=== PATIENT | male | born 1965 | race Caucasian/White ===

== ENCOUNTER 2017-09-14 06:21 | Day surgery (SDC) | payer MEDICAID ==
[2017-09-14] MEDS ORDERED: Propofol 200 MG/20 ML SDV IV ONE (06:48)
[2017-09-14] MEDS ORDERED: Midazolam 1 MG/ML 2 ML SDV IV ONE (06:48)
[2017-09-14] MEDS ORDERED: fentaNYL 100 MCG/2 ML SDV IV ONE (06:48)
[2017-09-14] MEDS ORDERED: Lactated Ringers 1,000 ML IV SCH (07:00)
--- NOTE | 2017-09-14 10:20 | OR ---
DATE OF PROCEDURE: 09/14/2017 PREOPERATIVE DIAGNOSIS: Colon cancer screening. POSTOPERATIVE DIAGNOSIS: Small colon polyp, 50 cm from the anal verge. PROCEDURE: Colonoscopy to the cecum with biopsy resection of small colon polyp , 50 cm from the anal verge. SURGEON: Willie Cramer MD. ANESTHESIA: IV anesthesia with monitored anesthesia care. INDICATION: This 52-year-old male is referred for a colonoscopy for colon cancer screening. He has never had a colonoscopic exam. I counseled him for the procedure including risks and alternatives, and he gave his informed consent to proceed. DESCRIPTION OF PROCEDURE: The patient was placed in the left lateral decubitus position. IV anesthesia was administered by the Anesthesia Service. Time-out was held. A rectal exam was performed, which was unremarkable. The flexible video Olympus colonoscope was introduced through his anus, up his rectum, and out of his colon all the way to the cecum. Once the cecum was reached, the scope was slowly withdrawn, examining the mucosa throughout. No mucosal abnormalities were noted until we reached about 50 cm from the anal verge. Here, we saw a small polyp, which was removed with a few bites of the biopsy forceps. The scope was withdrawn further with no other lesions noted. The scope was retroflexed in the rectum with the distal rectum appearing unremarkable. The scope was straightened and removed. He tolerated the procedure well. Willie Cramer MD /[id number]
== END 2017-09-14 09:00 | disposition home or self-care (01) ==
LOC: JP.SDS 06:21
PROVIDERS: ATTEND Surgery
DX: Z12.11 Encounter for screening for malignant neoplasm of colon (principal); D12.6 Benign neoplasm of colon, unspecified; I10 Essential (primary) hypertension; E78.00 Pure hypercholesterolemia, unspecified; G47.33 Obstructive sleep apnea (adult) (pediatric); F17.210 Nicotine dependence, cigarettes, uncomplicated
CPT/HCPCS: 45380; 88305; J2250; J2704; J3010; J7120

== ENCOUNTER 2023-11-22 21:36 | Inpatient (IN) | payer MEDICAID ==
[2023-11-22 22:20] LABS: HEMATOCRIT 38.4 % (38.4-49.7); HEMOGLOBIN 14.2 g/dL (12.9-16.9); MEAN CORPUSCULAR HEMOGLOBIN 36.7 pg (31.6-35.5); MEAN CORPUSCULAR VOLUME 99.2 fL (81.4-99.0); RED BLOOD CELL COUNT 3.87 M/uL (4.14-5.76); WHITE BLOOD CELL COUNT,WBC 11.5 K/uL (3.2-11.0)
[2023-11-22 22:39] LABS: A/G RATIO 0.5 (1.2-2.2); ALANINE AMINOTRANSFERASE,ALT 53 U/L (12-78); ALBUMIN 2.4 g/dL (3.4-5.0); ALKALINE PHOSPHATASE 118 U/L (46-116); ASPARTATE AMNIOTRANSFERASE,AST 134 U/L (15-37); BILIRUBIN TOTAL 1.2 mg/dL (0.2-1.0); BLOOD UREA NITROGEN,BUN 7 mg/dL (7-18); CALCIUM 7.5 mg/dL (8.5-10.1); CARBON DIOXIDE,CO2 31 mmol/L (21-32); CHLORIDE,CL 85 mmol/L (100-108); CREATINE KINASE,CK 54 U/L (39-308); CREATININE 1.2 mg/dL (0.8-1.3); EST CRCL DRUG DOSING (CG) 63.33 mL/min; ESTIMATED GFR 69 mL/min (>60); GLUCOSE RANDOM 151 mg/dL (74-106); PROTEIN TOTAL,TP 6.9 g/dL (6.4-8.2); SODIUM,NA 126 mmol/L (140-148); TROPONIN I HIGH SENSITIVITY 12.4 pg/mL (<=60.3)
[2023-11-22 22:43] LABS: ANION GAP 12.1 mmol/L (5.0-14.0); POTASSIUM,K 2.1 mmol/L (3.6-5.2)
[2023-11-22] MEDS ORDERED: Potassium Chloride 10 MEQ in Premix Bag 1 BAG IV ONE (22:48)
[2023-11-23] MEDS ORDERED: Sodium Chloride 0.9% 100 ML IV STA (00:18)
[2023-11-23] MEDS ORDERED: Iopamidol 755 Mg/ML 100 ML Bottle IV STA (00:18)
[2023-11-23] MEDS ORDERED: Potassium Chloride 10 MEQ in Premix Bag 1 BAG IV STA (00:41)
[2023-11-23 00:44] LABS: CORONAVIRUS COVID-19 NAA NEGATIVE (NEGATIVE); INFLUENZA A NAA NEGATIVE (NEGATIVE); INFLUENZA B NAA NEGATIVE (NEGATIVE); RESPIRATORY SYNCYTIAL VIR NAA NEGATIVE (NEGATIVE)
[2023-11-23 01:49] LABS: APPEARANCE,URINE CLEAR (CLEAR); BILIRUBIN,URINE SMALL (NEGATIVE); COLOR,URINE YELLOW (YELLOW); GLUCOSE,URINE NORMAL (NEGATIVE); LEUKOCYTE ESTERASE,URINE NEGATIVE (NEGATIVE); NITRITE,URINE NEGATIVE (NEGATIVE); OCCULT BLOOD,URINE TRACE (NEGATIVE); PROTEIN,URINE 30 mg/dL (NEGATIVE); UROBILINOGEN,URINE 1 EU/dL (0.2-1.0)
[2023-11-23 01:50] LABS: AMORPHOUS SEDIMENT,URINE MODERATE; BACTERIA,URINE FEW; EPITHELIAL CELLS,URINE FEW; KETONES,URINE TRACE mg/dL (NEGATIVE); MUCUS,URINE NOT SEEN; RBC,URINE 0-5 (0-5); WBC,URINE 0-5 (0-5)
[2023-11-23 01:54] LABS: AMPHETAMINES SCREEN, URINE NEGATIVE (NEGATIVE); BARBITURATE SCREEN,URINE NEGATIVE (NEGATIVE); BENZODIAZEPINES SCREEN,URINE NEGATIVE (NEGATIVE); METHADONE SCREEN, URINE NEGATIVE (NEGATIVE); METHAMPHETAMINES SCREEN, URINE NEGATIVE (NEGATIVE); OXYCODONE SCREEN,URINE NEGATIVE (NEGATIVE); PROPOXYPHENE SCREEN,URINE NEGATIVE (NEGATIVE); THC SCREEN,URINE 50 NG/ML NEGATIVE (NEGATIVE)
[2023-11-23] MEDS: Sodium Chloride 0.9% 1,000 ML IV SCH ×3 (01:58→20:13)
[2023-11-23] MEDS ORDERED: Potassium Chloride 20 MEQ Tab.ER PO ONE ×5 (02:38→22:00)
[2023-11-23] MEDS ORDERED: Magnesium Sulfate/Water 2 GM in Premix Bag 1 BAG IV SCH (02:45)
[2023-11-23] MEDS: Nicotine 21 MG/24 Hr Patch TRDERM SCH ×2 (03:13→08:41)
[2023-11-23] MEDS: Potassium Chloride 10 MEQ in Premix Bag 1 BAG IV SCH ×8 (03:13→12:23)
[2023-11-23] MEDS: Acetaminophen 325 MG Tab PO PRN ×3 (03:15→21:44)
[2023-11-23 04:57] LABS: HEMATOCRIT 34.3 % (38.4-49.7); HEMOGLOBIN 12.6 g/dL (12.9-16.9); MEAN CORPUSCULAR HEMOGLOBIN 36.4 pg (31.6-35.5); MEAN CORPUSCULAR HGB CONC 36.7 g/dL (31.6-35.5); MEAN CORPUSCULAR VOLUME 99.1 fL (81.4-99.0); RED BLOOD CELL COUNT 3.46 M/uL (4.14-5.76); WHITE BLOOD CELL COUNT,WBC 10.8 K/uL (3.2-11.0)
[2023-11-23] MEDS: Enoxaparin 40 MG/0.4 ML Syringe SUBCUT SCH (08:41)
[2023-11-23] MEDS: Magnesium Sulfate/Water 2 GM in Premix Bag 1 BAG IV SCH ×2 (08:41→16:17)
[2023-11-23] MEDS ORDERED: LORazepam 2 MG/ML SDV IV SCH (09:00)
[2023-11-23] MEDS: LORazepam 1 MG Tab PO SCH ×3 (09:10→21:44)
[2023-11-23] MEDS ORDERED: MVI, Adult with Vitamin K 10 ML, Thiamine 100 MG, Folic Acid 1 MG, Magnesium Sulfate 2 ... IV ONE ×5 (09:15)
[2023-11-23] MEDS: Thiamine 100 MG Tab PO SCH (09:37)
[2023-11-23] MEDS: Folic Acid 1 MG Tab PO SCH (09:37)
[2023-11-23] MEDS ORDERED: Diltiazem 25 MG/5 ML SDV IVPUSH ONE (10:37)
[2023-11-23] MEDS ORDERED: Diltiazem 100 MG in Sodium Chloride 0.9% 100 ML IV SCH (10:45)
[2023-11-23 18:02] LABS: ANION GAP 8.1 mmol/L (5.0-14.0); CALCIUM 7.6 mg/dL (8.5-10.1); CREATININE 0.9 mg/dL (0.8-1.3); EST CRCL DRUG DOSING (CG) 84.44 mL/min; POTASSIUM,K 3.1 mmol/L (3.6-5.2)
[2023-11-23] MEDS ORDERED: Glucose Gel 15 GM in 37.5 GM Tube PO PRN (18:02)
[2023-11-23] MEDS ORDERED: 50% Dextrose in Water 50 ML Syringe IV PRN (18:02)
[2023-11-23] MEDS: Insulin Lispro 100 Unit/ML 3 ML KwikPen SUBCUT SCH (21:17)
[2023-11-24] MEDS ORDERED: Albuterol/Ipratropium 3.0-0.5 MG/3 ML Neb Soln NEB PRN (05:29)
[2023-11-24 05:30] LABS: HEMATOCRIT 37.4 % (38.4-49.7); HEMOGLOBIN 13.1 g/dL (12.9-16.9); MEAN CORPUSCULAR HEMOGLOBIN 35.8 pg (31.6-35.5); MEAN CORPUSCULAR VOLUME 102.2 fL (81.4-99.0); RED BLOOD CELL COUNT 3.66 M/uL (4.14-5.76); WHITE BLOOD CELL COUNT,WBC 7.1 K/uL (3.2-11.0)
[2023-11-24 05:47] LABS: INR 1.2; PROTHROMBIN TIME 11.6 sec (9.2-10.6)
[2023-11-24 05:54] LABS: A/G RATIO 0.5 (1.2-2.2); ALANINE AMINOTRANSFERASE,ALT 84 U/L (12-78); ALBUMIN 2.1 g/dL (3.4-5.0); ALKALINE PHOSPHATASE 130 U/L (46-116); ASPARTATE AMNIOTRANSFERASE,AST 288 U/L (15-37); BLOOD UREA NITROGEN,BUN 5 mg/dL (7-18); CALCIUM 7.8 mg/dL (8.5-10.1); CARBON DIOXIDE,CO2 31 mmol/L (21-32); CHLORIDE,CL 97 mmol/L (100-108); CREATININE 0.8 mg/dL (0.8-1.3); ESTIMATED GFR 101 mL/min (>60); GLUCOSE RANDOM 103 mg/dL (74-106); POTASSIUM,K 3.8 mmol/L (3.6-5.2); PROTEIN TOTAL,TP 6.4 g/dL (6.4-8.2); SODIUM,NA 133 mmol/L (140-148)
[2023-11-24 06:21] LABS: ANION GAP 8.8 mmol/L (5.0-14.0)
[2023-11-24] MEDS: Insulin Lispro 100 Unit/ML 3 ML KwikPen SUBCUT SCH ×4 (07:29→21:14)
[2023-11-24] MEDS: Nicotine 21 MG/24 Hr Patch TRDERM SCH (08:58)
[2023-11-24] MEDS: Folic Acid 1 MG Tab PO SCH (08:58)
[2023-11-24] MEDS: Enoxaparin 40 MG/0.4 ML Syringe SUBCUT SCH (08:59)
[2023-11-24] MEDS: Sodium Chloride 0.9% 1,000 ML IV SCH (09:00)
[2023-11-24] MEDS: LORazepam 1 MG Tab PO SCH ×2 (09:02→16:16)
[2023-11-24] MEDS: Thiamine 100 MG Tab PO SCH (09:03)
[2023-11-24] MEDS ORDERED: Ciprofloxacin in D5W 400 MG in Premix Bag 1 BAG IV SCH ×2 (15:00)
[2023-11-24] MEDS ORDERED: metroNIDAZOLE/Normal Saline 500 MG in Premix Bag 1 BAG IV SCH (16:00)
[2023-11-24] MEDS ORDERED: Metoprolol Tartrate 25 MG Tab PO ONE (16:26)
[2023-11-24] MEDS ORDERED: Ondansetron 4 MG Tab.DIS PO PRN (16:52)
[2023-11-24] MEDS ORDERED: Morphine 2 MG/ML SYRINGE IVPUSH ONE (18:07)
[2023-11-24] MEDS ORDERED: Furosemide 40 MG/4 ML VIAL IVPUSH ONE (18:08)
[2023-11-24 18:16] LABS: BASE EXCESS ARTERIAL -1.3 mm/L; CARBOXYHEMOGLOBIN 2.2 % (0.0-1.6); METHEMOGLOBIN 0.5 %; O2 SATURATION ARTERIAL 96.8 % (95.0-98.0); OXYHEMOGLOBIN 94.2 %; PO2 ARTERIAL 94.1 mmHg (75.0-100.0); TOTAL HEMOGLOBIN 14.6 g/dL (13.5-18.0)
[2023-11-24] MEDS ORDERED: methylPREDNISolone Sodium Succinate 125 MG/2 ML SDV IVPUSH ONE (18:18)
[2023-11-24] MEDS: Meropenem 1 GM in Sodium Chloride 0.9% 100 ML IV SCH (18:34)
[2023-11-24] MEDS ORDERED: Succinylcholine 200 MG/10 ML MDV ONE ×2 (18:43→19:01)
[2023-11-24] MEDS ORDERED: Midazolam 1 MG/ML 5 ML SDV ONE (18:43)
[2023-11-24] MEDS ORDERED: Rocuronium 50 MG/5 ML Vial ONE (18:43)
[2023-11-24] MEDS ORDERED: Heparin Sodium 5,000 Units/ML Vial ONE (18:50)
[2023-11-24] MEDS ORDERED: Vancomycin 1 GM SDV IV SCH (19:00)
[2023-11-24] MEDS ORDERED: Sodium Chloride 0.9% 500 ML IV ONE ×4 (19:00→22:55)
[2023-11-24] MEDS ORDERED: Propofol 200 MG/20 ML SDV ONE (19:01)
[2023-11-24 19:08] LABS: ANION GAP 12.6 mmol/L (5.0-14.0); CALCIUM 7.9 mg/dL (8.5-10.1); CREATININE 0.8 mg/dL (0.8-1.3); POTASSIUM,K 3.6 mmol/L (3.6-5.2)
[2023-11-24] MEDS ORDERED: propofoL 100 ML ONE (19:13)
[2023-11-24] MEDS: propofoL 100 ML IV SCH ×2 (19:16→23:28)
[2023-11-24] MEDS ORDERED: Vancomycin 2 GM in Sodium Chloride 0.9% 500 ML IV ONE (20:00)
[2023-11-24 20:27] LABS: BASE EXCESS ARTERIAL -2.3 mm/L; BICARBONATE,ARTERIAL 25.4 mmol/L (22.0-26.0); CARBOXYHEMOGLOBIN 1.1 % (0.0-1.6); METHEMOGLOBIN 0.7 %; O2 SATURATION ARTERIAL 93.4 % (95.0-98.0); OXYHEMOGLOBIN 91.7 %; PCO2 ARTERIAL 59.6 mmHg (35.0-42.0); PO2 ARTERIAL 79.9 mmHg (75.0-100.0); TOTAL HEMOGLOBIN 12.7 g/dL (13.5-18.0)
[2023-11-24] MEDS: Norepinephrine Bit/D5W Premix 4 MG in Premix Bag 1 BAG IV SCH (20:30)
[2023-11-24] MEDS ORDERED: Norepinephrine Bit/D5W Premix 250 ML ONE (20:30)
[2023-11-24] MEDS ORDERED: Heparin Sodium 5,000 UNITS in Sodium Chloride 0.9% 500 ML IV SCH (21:00)
[2023-11-24] MEDS ORDERED: Pantoprazole 40 MG Vial ONE (21:16)
[2023-11-24] MEDS: Magnesium Sulfate/Water 2 GM in Premix Bag 1 BAG IV SCH (21:16)
[2023-11-24] MEDS: Pantoprazole 40 MG Vial IVPUSH SCH (21:25)
[2023-11-24 22:24] LABS: BASE EXCESS ARTERIAL -2.2 mm/L; BICARBONATE,ARTERIAL 23.6 mmol/L (22.0-26.0); CARBOXYHEMOGLOBIN 1.2 % (0.0-1.6); METHEMOGLOBIN 0.6 %; O2 SATURATION ARTERIAL 94.8 % (95.0-98.0); OXYHEMOGLOBIN 93.1 %; PCO2 ARTERIAL 46.9 mmHg (35.0-42.0); PO2 ARTERIAL 78.6 mmHg (75.0-100.0); TOTAL HEMOGLOBIN 13.3 g/dL (13.5-18.0)
[2023-11-25] MEDS: Magnesium Sulfate/Water 2 GM in Premix Bag 1 BAG IV SCH (00:55)
[2023-11-25] MEDS: Meropenem 1 GM in Sodium Chloride 0.9% 100 ML IV SCH ×3 (01:33→18:42)
[2023-11-25] MEDS: propofoL 100 ML IV SCH ×7 (02:36→23:02)
[2023-11-25] MEDS: Sodium Chloride 0.9% 1,000 ML IV SCH ×3 (03:57→19:42)
[2023-11-25] MEDS: Norepinephrine Bit/D5W Premix 4 MG in Premix Bag 1 BAG IV SCH (04:10)
[2023-11-25 05:12] LABS: BASOPHILS PERCENT AUTO 0.2 % (0.1-1.3); HEMATOCRIT 37.3 % (38.4-49.7); HEMOGLOBIN 12.8 g/dL (12.9-16.9); IMMATURE GRAN ABSOLUTE AUTO 0.03 K/uL (0.00-0.23); IMMATURE GRAN PERCENT AUTO 0.5 % (0.0-0.7); LYMPHOCYTES ABSOLUTE AUTO 0.38 K/uL (0.8-3.3); LYMPHOCYTES PERCENT AUTO 6.6 % (11.4-47.7); MEAN CORPUSCULAR HEMOGLOBIN 35.9 pg (31.6-35.5); MEAN CORPUSCULAR HGB CONC 34.3 g/dL (31.6-35.5); MEAN CORPUSCULAR VOLUME 104.5 fL (81.4-99.0); MONOCYTES PERCENT AUTO 3.5 % (3.3-12.6); NEUTROPHILS ABSOLUTE AUTO 5.14 K/uL (1.0-7.6); NEUTROPHILS PERCENT AUTO 89.2 % (40.0-78.1); PLATELET COUNT,PLT 184 K/uL (130-375); RED BLOOD CELL COUNT 3.57 M/uL (4.14-5.76); WHITE BLOOD CELL COUNT,WBC 5.8 K/uL (3.2-11.0)
[2023-11-25 05:13] LABS: BASE EXCESS ARTERIAL -2.5 mm/L; CARBOXYHEMOGLOBIN 2.5 % (0.0-1.6); METHEMOGLOBIN 0.6 %; O2 SATURATION ARTERIAL 99.2 % (95.0-98.0); OXYHEMOGLOBIN 96.1 %; PCO2 ARTERIAL 34.5 mmHg (35.0-42.0); TOTAL HEMOGLOBIN 13.4 g/dL (13.5-18.0)
[2023-11-25 05:17] LABS: BASOPHILS ABSOLUTE AUTO 0.01 K/uL (0.00-0.10)
[2023-11-25 05:36] LABS: A/G RATIO 0.4 (1.2-2.2); ALANINE AMINOTRANSFERASE,ALT 90 U/L (12-78); ALBUMIN 1.8 g/dL (3.4-5.0); ALKALINE PHOSPHATASE 114 U/L (46-116); ASPARTATE AMNIOTRANSFERASE,AST 200 U/L (15-37); BILIRUBIN TOTAL 0.8 mg/dL (0.2-1.0); BLOOD UREA NITROGEN,BUN 6 mg/dL (7-18); CALCIUM 7.3 mg/dL (8.5-10.1); CARBON DIOXIDE,CO2 21 mmol/L (21-32); CHLORIDE,CL 101 mmol/L (100-108); CREATININE 0.8 mg/dL (0.8-1.3); ESTIMATED GFR 101 mL/min (>60); GLUCOSE RANDOM 249 mg/dL (74-106); MAGNESIUM 1.9 mg/dL (1.8-2.4); POTASSIUM,K 3.6 mmol/L (3.6-5.2); PROTEIN TOTAL,TP 5.9 g/dL (6.4-8.2); SODIUM,NA 135 mmol/L (140-148)
[2023-11-25 05:41] LABS: ANION GAP 16.6 mmol/L (5.0-14.0)
[2023-11-25] MEDS: Insulin Lispro 100 Unit/ML 3 ML KwikPen SUBCUT SCH ×4 (07:52→20:09)
[2023-11-25] MEDS: Enoxaparin 40 MG/0.4 ML Syringe SUBCUT SCH (08:27)
[2023-11-25] MEDS: Pantoprazole 40 MG Vial IVPUSH SCH (08:27)
[2023-11-25] MEDS: Folic Acid 1 MG Tab PO SCH (08:31)
[2023-11-25] MEDS: Thiamine 100 MG Tab PO SCH (08:32)
[2023-11-25] MEDS: Nicotine 21 MG/24 Hr Patch TRDERM SCH (08:32)
[2023-11-25] MEDS ORDERED: Sodium Chloride 0.9% 10 ML Syringe FLUSH ONE ×2 (09:48→13:41)
[2023-11-25] MEDS ORDERED: Sodium Chloride 0.9% 100 ML IV SCH ×2 (10:00→13:45)
[2023-11-25] MEDS ORDERED: Iopamidol 755 Mg/ML 100 ML Bottle IV SCH (10:00)
[2023-11-25] MEDS ORDERED: Sodium Chloride 0.9% 1,000 ML IV SCH ×2 (12:45)
[2023-11-25] MEDS ORDERED: Iopamidol 612 MG/ML 100 ML Bottle IV PRN (13:41)
[2023-11-25] MEDS ORDERED: Sodium Chloride 0.9% 250 ML IV SCH (16:00)
[2023-11-25] MEDS ORDERED: Sodium Chloride 0.9% 1,000 ML IV ONE (16:00)
[2023-11-25 16:55] LABS: BASE EXCESS ARTERIAL -1.7 mm/L; BICARBONATE,ARTERIAL 22.4 mmol/L (22.0-26.0); CARBOXYHEMOGLOBIN 2.7 % (0.0-1.6); METHEMOGLOBIN 0.6 %; O2 SATURATION ARTERIAL 99.1 % (95.0-98.0); OXYHEMOGLOBIN 95.8 %; PCO2 ARTERIAL 37.7 mmHg (35.0-42.0); TOTAL HEMOGLOBIN 12.9 g/dL (13.5-18.0)
[2023-11-25 17:10] LABS: CALCIUM 7.3 mg/dL (8.5-10.1); CREATININE 0.9 mg/dL (0.8-1.3); EST CRCL DRUG DOSING (CG) 84.44 mL/min; POTASSIUM,K 3.5 mmol/L (3.6-5.2)
[2023-11-25 17:11] LABS: ANION GAP 14.5 mmol/L (5.0-14.0)
[2023-11-26] MEDS: propofoL 100 ML IV SCH ×8 (02:34→23:19)
[2023-11-26] MEDS: Meropenem 1 GM in Sodium Chloride 0.9% 100 ML IV SCH ×3 (02:36→18:11)
[2023-11-26 05:06] LABS: HEMATOCRIT 34.4 % (38.4-49.7); MEAN CORPUSCULAR HEMOGLOBIN 35.9 pg (31.6-35.5); MEAN CORPUSCULAR HGB CONC 34.9 g/dL (31.6-35.5); RED BLOOD CELL COUNT 3.34 M/uL (4.14-5.76)
[2023-11-26 05:07] LABS: BASE EXCESS ARTERIAL 0.7 mm/L; BICARBONATE,ARTERIAL 23.2 mmol/L (22.0-26.0); CARBOXYHEMOGLOBIN 2.4 % (0.0-1.6); METHEMOGLOBIN 0.8 %; O2 SATURATION ARTERIAL 99.1 % (95.0-98.0); OXYHEMOGLOBIN 95.9 %; PCO2 ARTERIAL 31.5 mmHg (35.0-42.0); TOTAL HEMOGLOBIN 12.5 g/dL (13.5-18.0)
[2023-11-26] MEDS: Sodium Chloride 0.9% 1,000 ML IV SCH (05:24)
[2023-11-26 05:27] LABS: A/G RATIO 0.5 (1.2-2.2); ALANINE AMINOTRANSFERASE,ALT 76 U/L (12-78); ALBUMIN 1.7 g/dL (3.4-5.0); ALKALINE PHOSPHATASE 93 U/L (46-116); ASPARTATE AMNIOTRANSFERASE,AST 137 U/L (15-37); BILIRUBIN TOTAL 0.5 mg/dL (0.2-1.0); BLOOD UREA NITROGEN,BUN 11 mg/dL (7-18); CALCIUM 7.4 mg/dL (8.5-10.1); CARBON DIOXIDE,CO2 25 mmol/L (21-32); CHLORIDE,CL 106 mmol/L (100-108); CREATININE 0.8 mg/dL (0.8-1.3); ESTIMATED GFR 101 mL/min (>60); GLUCOSE RANDOM 150 mg/dL (74-106); MAGNESIUM 1.7 mg/dL (1.8-2.4); PHOSPHORUS 2.1 mg/dL (2.5-4.9); POTASSIUM,K 3.4 mmol/L (3.6-5.2); PROTEIN TOTAL,TP 5.4 g/dL (6.4-8.2); SODIUM,NA 139 mmol/L (140-148); VANCOMYCIN RANDOM 19.6 ug/mL (0.0-50.0)
[2023-11-26 05:28] LABS: ANION GAP 11.4 mmol/L (5.0-14.0)
[2023-11-26] MEDS: Insulin Lispro 100 Unit/ML 3 ML KwikPen SUBCUT SCH ×4 (07:44→20:53)
[2023-11-26] MEDS: Thiamine 100 MG Tab PO SCH (08:01)
[2023-11-26] MEDS: Folic Acid 1 MG Tab PO SCH (08:01)
[2023-11-26] MEDS ORDERED: Magnesium Sulfate/Water 2 GM in Premix Bag 1 BAG IV SCH (09:00)
[2023-11-26] MEDS: Pantoprazole 40 MG Vial IVPUSH SCH (09:04)
[2023-11-26] MEDS: Enoxaparin 40 MG/0.4 ML Syringe SUBCUT SCH (09:04)
[2023-11-26] MEDS: Nicotine 21 MG/24 Hr Patch TRDERM SCH (09:05)
[2023-11-26] MEDS: Norepinephrine Bit/D5W Premix 4 MG in Premix Bag 1 BAG IV SCH (09:15)
[2023-11-26] MEDS: Potassium Chloride 10 MEQ in Premix Bag 1 BAG IV SCH ×4 (09:17→13:37)
[2023-11-26] MEDS ORDERED: Lidocaine 2% Viscous Solution 15 ML UD ONE (09:57)
[2023-11-26] MEDS ORDERED: Lidocaine 4% Top Soln 50 ML Bottle ONE (09:57)
[2023-11-26] MEDS ORDERED: Bupivacaine 0.5% 50 ML MDV ONE (10:01)
[2023-11-26] MEDS ORDERED: Bupivacaine 0.5%/EPINEPHrine 1:200,000 50 ML MDV ONE (10:02)
[2023-11-26] MEDS ORDERED: Lidocaine 1% with EPINEPHrine 1:100,000 50 ML MDV ONE (10:02)
[2023-11-26] MEDS ORDERED: Sodium Chloride 0.9% 1,000 ML IV SCH ×2 (14:30→22:00)
[2023-11-26] MEDS ORDERED: Potassium Phosphates 15 MMOLE in Sodium Chloride 0.9% 250 ML IV ONE (14:32)
[2023-11-26] MEDS: Furosemide 20 MG/2 ML VIAL IVPUSH SCH ×2 (14:45→22:28)
[2023-11-26] MEDS ORDERED: Potassium Phos in 0.9 % NaCl 15 MMOL in Premix Bag 1 BAG IV ONE ×2 (15:00)
[2023-11-26 17:17] LABS: BASE EXCESS ARTERIAL 2.1 mm/L; BICARBONATE,ARTERIAL 23.4 mmol/L (22.0-26.0); CARBOXYHEMOGLOBIN 2.2 % (0.0-1.6); METHEMOGLOBIN 0.6 %; O2 SATURATION ARTERIAL 98.4 % (95.0-98.0); OXYHEMOGLOBIN 95.6 %; PCO2 ARTERIAL 27.3 mmHg (35.0-42.0); PO2 ARTERIAL 86.2 mmHg (75.0-100.0)
[2023-11-26 17:32] LABS: CALCIUM 7.8 mg/dL (8.5-10.1); CREATININE 0.9 mg/dL (0.8-1.3); EST CRCL DRUG DOSING (CG) 84.44 mL/min; POTASSIUM,K 3.6 mmol/L (3.6-5.2)
[2023-11-26 20:11] LABS: BASE EXCESS ARTERIAL 2.9 mm/L; BICARBONATE,ARTERIAL 25.1 mmol/L (22.0-26.0); CARBOXYHEMOGLOBIN 2.1 % (0.0-1.6); METHEMOGLOBIN 0.7 %; O2 SATURATION ARTERIAL 97.7 % (95.0-98.0); PCO2 ARTERIAL 31.6 mmHg (35.0-42.0); PO2 ARTERIAL 86.1 mmHg (75.0-100.0); TOTAL HEMOGLOBIN 12.4 g/dL (13.5-18.0)
[2023-11-27] MEDS: propofoL 100 ML IV SCH ×2 (01:56→05:11)
[2023-11-27] MEDS: Meropenem 1 GM in Sodium Chloride 0.9% 100 ML IV SCH ×2 (02:34→11:04)
[2023-11-27 05:19] LABS: BASE EXCESS ARTERIAL 5.4 mm/L; BICARBONATE,ARTERIAL 27.2 mmol/L (22.0-26.0); CARBOXYHEMOGLOBIN 2.4 % (0.0-1.6); METHEMOGLOBIN 0.7 %; O2 SATURATION ARTERIAL 97.6 % (95.0-98.0); OXYHEMOGLOBIN 94.6 %; PCO2 ARTERIAL 31.2 mmHg (35.0-42.0); PO2 ARTERIAL 82.8 mmHg (75.0-100.0); TOTAL HEMOGLOBIN 12.7 g/dL (13.5-18.0)
[2023-11-27 05:19] LABS: HEMATOCRIT 34.3 % (38.4-49.7); HEMOGLOBIN 12.2 g/dL (12.9-16.9); MEAN CORPUSCULAR HEMOGLOBIN 35.9 pg (31.6-35.5); MEAN CORPUSCULAR HGB CONC 35.6 g/dL (31.6-35.5); MEAN CORPUSCULAR VOLUME 100.9 fL (81.4-99.0); RED BLOOD CELL COUNT 3.4 M/uL (4.14-5.76); WHITE BLOOD CELL COUNT,WBC 7.2 K/uL (3.2-11.0)
[2023-11-27 05:39] LABS: A/G RATIO 0.5 (1.2-2.2); ALANINE AMINOTRANSFERASE,ALT 88 U/L (12-78); ALBUMIN 1.8 g/dL (3.4-5.0); ALKALINE PHOSPHATASE 109 U/L (46-116); ASPARTATE AMNIOTRANSFERASE,AST 159 U/L (15-37); BILIRUBIN TOTAL 0.7 mg/dL (0.2-1.0); BLOOD UREA NITROGEN,BUN 9 mg/dL (7-18); CALCIUM 7.9 mg/dL (8.5-10.1); CARBON DIOXIDE,CO2 27 mmol/L (21-32); CHLORIDE,CL 106 mmol/L (100-108); CREATININE 0.8 mg/dL (0.8-1.3); ESTIMATED GFR 101 mL/min (>60); GLUCOSE RANDOM 103 mg/dL (74-106); MAGNESIUM 1.4 mg/dL (1.8-2.4); PHOSPHORUS 2.8 mg/dL (2.5-4.9); PROTEIN TOTAL,TP 5.5 g/dL (6.4-8.2); SODIUM,NA 143 mmol/L (140-148)
[2023-11-27 05:44] LABS: ANION GAP 12.8 mmol/L (5.0-14.0); POTASSIUM,K 2.8 mmol/L (3.6-5.2)
[2023-11-27] MEDS ORDERED: Potassium Chloride 10% 20 MEQ/15 ML Soln 15 ML UD Cup NGTUBE ONE (06:09)
[2023-11-27] MEDS: Furosemide 20 MG/2 ML VIAL IVPUSH SCH ×3 (06:33→22:22)
[2023-11-27] MEDS: Insulin Lispro 100 Unit/ML 3 ML KwikPen SUBCUT SCH ×4 (07:40→21:04)
[2023-11-27] MEDS: Potassium Chloride 10 MEQ in Premix Bag 1 BAG IV SCH ×4 (07:53→10:58)
[2023-11-27] MEDS: Folic Acid 1 MG Tab PO SCH (08:36)
[2023-11-27] MEDS: Thiamine 100 MG Tab PO SCH (08:36)
[2023-11-27] MEDS: Nicotine 21 MG/24 Hr Patch TRDERM SCH (08:39)
[2023-11-27] MEDS: Enoxaparin 40 MG/0.4 ML Syringe SUBCUT SCH (08:52)
[2023-11-27] MEDS: Pantoprazole 40 MG Vial IVPUSH SCH (08:54)
[2023-11-27] MEDS: Magnesium Sulfate/Water 2 GM in Premix Bag 1 BAG IV SCH ×3 (09:48→18:29)
[2023-11-27] MEDS ORDERED: Potassium Chloride 20 MEQ Tab.ER PO ONE ×3 (13:00→23:00)
[2023-11-27] MEDS: cefTRIAXone 1 GM in Sodium Chloride 0.9% 50 ML IV SCH (13:17)
[2023-11-27] MEDS: Magnesium Oxide 400 MG Tab PO SCH ×2 (13:44→21:42)
[2023-11-27] MEDS: Doxycycline 100 MG in Sodium Chloride 0.9% 100 ML IV SCH (14:34)
[2023-11-27] MEDS ORDERED: Heparin Sodium 5,000 UNITS in Sodium Chloride 0.9% 500 ML IV SCH (16:00)
[2023-11-27 17:04] LABS: BASE EXCESS ARTERIAL 5.4 mm/L; BICARBONATE,ARTERIAL 28.1 mmol/L (22.0-26.0); CARBOXYHEMOGLOBIN 2.3 % (0.0-1.6); METHEMOGLOBIN 0.6 %; OXYHEMOGLOBIN 96.5 %; PCO2 ARTERIAL 35.4 mmHg (35.0-42.0); TOTAL HEMOGLOBIN 13.6 g/dL (13.5-18.0)
[2023-11-27 17:05] LABS: O2 SATURATION ARTERIAL > 99.3 % (95.0-98.0)
[2023-11-27 17:19] LABS: CALCIUM 8.2 mg/dL (8.5-10.1); MAGNESIUM 1.6 mg/dL (1.8-2.4); POTASSIUM,K 3.2 mmol/L (3.6-5.2)
[2023-11-27 17:21] LABS: ANION GAP 12.2 mmol/L (5.0-14.0)
[2023-11-27] MEDS: Melatonin 3 MG Tab PO PRN (22:18)
[2023-11-28] MEDS: Magnesium Sulfate/Water 2 GM in Premix Bag 1 BAG IV SCH (00:11)
[2023-11-28] MEDS: Doxycycline 100 MG in Sodium Chloride 0.9% 100 ML IV SCH ×2 (03:21→13:27)
[2023-11-28 05:29] LABS: BASE EXCESS ARTERIAL 6.9 mm/L; BICARBONATE,ARTERIAL 29.2 mmol/L (22.0-26.0); CARBOXYHEMOGLOBIN 1.9 % (0.0-1.6); METHEMOGLOBIN 0.7 %; O2 SATURATION ARTERIAL 97.2 % (95.0-98.0); OXYHEMOGLOBIN 94.7 %; PCO2 ARTERIAL 33.5 mmHg (35.0-42.0); PO2 ARTERIAL 85.2 mmHg (75.0-100.0); TOTAL HEMOGLOBIN 13.3 g/dL (13.5-18.0)
[2023-11-28 05:31] LABS: HEMATOCRIT 35.5 % (38.4-49.7); HEMOGLOBIN 12.6 g/dL (12.9-16.9); MEAN CORPUSCULAR HEMOGLOBIN 35.5 pg (31.6-35.5); MEAN CORPUSCULAR HGB CONC 35.5 g/dL (31.6-35.5); RED BLOOD CELL COUNT 3.55 M/uL (4.14-5.76); WHITE BLOOD CELL COUNT,WBC 8.5 K/uL (3.2-11.0)
[2023-11-28 05:52] LABS: A/G RATIO 0.5 (1.2-2.2); ALANINE AMINOTRANSFERASE,ALT 103 U/L (12-78); ALKALINE PHOSPHATASE 141 U/L (46-116); ASPARTATE AMNIOTRANSFERASE,AST 172 U/L (15-37); BILIRUBIN TOTAL 0.7 mg/dL (0.2-1.0); BLOOD UREA NITROGEN,BUN 10 mg/dL (7-18); CARBON DIOXIDE,CO2 29 mmol/L (21-32); CHLORIDE,CL 100 mmol/L (100-108); CREATININE 0.8 mg/dL (0.8-1.3); ESTIMATED GFR 101 mL/min (>60); GLUCOSE RANDOM 130 mg/dL (74-106); MAGNESIUM 2.2 mg/dL (1.8-2.4); POTASSIUM,K 3.4 mmol/L (3.6-5.2); PROTEIN TOTAL,TP 5.9 g/dL (6.4-8.2); SODIUM,NA 136 mmol/L (140-148)
[2023-11-28 05:54] LABS: ANION GAP 10.4 mmol/L (5.0-14.0)
[2023-11-28] MEDS: Furosemide 20 MG/2 ML VIAL IVPUSH SCH (07:02)
[2023-11-28] MEDS: Insulin Lispro 100 Unit/ML 3 ML KwikPen SUBCUT SCH ×4 (07:54→21:05)
[2023-11-28] MEDS: Pantoprazole 40 MG Tab.CR PO SCH (08:05)
[2023-11-28] MEDS: Enoxaparin 40 MG/0.4 ML Syringe SUBCUT SCH (08:15)
[2023-11-28] MEDS: Folic Acid 1 MG Tab PO SCH (08:15)
[2023-11-28] MEDS: Nicotine 21 MG/24 Hr Patch TRDERM SCH (08:16)
[2023-11-28] MEDS: Thiamine 100 MG Tab PO SCH (08:17)
[2023-11-28] MEDS: Magnesium Oxide 400 MG Tab PO SCH ×2 (08:21→21:03)
[2023-11-28] MEDS ORDERED: Potassium Chloride 20 MEQ Tab.ER PO ONE ×2 (08:30→12:00)
[2023-11-28] MEDS ORDERED: Atropine/Diphenoxylate 0.025-2.5 MG Tab PO PRN (11:20)
[2023-11-28] MEDS ORDERED: Sodium Chloride 0.9% 500 ML IV ONE ×3 (11:33→13:45)
[2023-11-28] MEDS: cefTRIAXone 1 GM in Sodium Chloride 0.9% 50 ML IV SCH (12:17)
[2023-11-28] MEDS: Melatonin 3 MG Tab PO PRN (21:13)
[2023-11-29] MEDS: Doxycycline 100 MG in Sodium Chloride 0.9% 100 ML IV SCH ×2 (01:57→13:42)
[2023-11-29 05:16] LABS: CALCIUM 8.2 mg/dL (8.5-10.1); CREATININE 0.9 mg/dL (0.8-1.3); EST CRCL DRUG DOSING (CG) 84.44 mL/min; MAGNESIUM 1.8 mg/dL (1.8-2.4); POTASSIUM,K 4.3 mmol/L (3.6-5.2)
[2023-11-29 05:21] LABS: ANION GAP 12.3 mmol/L (5.0-14.0)
[2023-11-29] MEDS: Insulin Lispro 100 Unit/ML 3 ML KwikPen SUBCUT SCH ×4 (07:32→21:45)
[2023-11-29] MEDS: Pantoprazole 40 MG Tab.CR PO SCH (07:58)
[2023-11-29] MEDS: Folic Acid 1 MG Tab PO SCH (09:00)
[2023-11-29] MEDS: Thiamine 100 MG Tab PO SCH (09:00)
[2023-11-29] MEDS: Magnesium Oxide 400 MG Tab PO SCH ×2 (09:00→20:10)
[2023-11-29] MEDS: Nicotine 21 MG/24 Hr Patch TRDERM SCH (09:03)
[2023-11-29] MEDS: Enoxaparin 40 MG/0.4 ML Syringe SUBCUT SCH (09:04)
[2023-11-29] MEDS: Furosemide 20 MG Tab PO SCH ×2 (09:05→13:44)
[2023-11-29] MEDS: Triamcinolone Acetonide 0.1% Crm 15 GM Tube TOP SCH ×2 (12:15→20:10)
[2023-11-29] MEDS: cefTRIAXone 1 GM in Sodium Chloride 0.9% 50 ML IV SCH (12:22)
[2023-11-29] MEDS: Melatonin 3 MG Tab PO PRN (20:09)
[2023-11-30] MEDS: Doxycycline 100 MG in Sodium Chloride 0.9% 100 ML IV SCH (02:37)
[2023-11-30 05:43] LABS: CALCIUM 8.5 mg/dL (8.5-10.1); CREATININE 0.9 mg/dL (0.8-1.3); EST CRCL DRUG DOSING (CG) 84.44 mL/min; POTASSIUM,K 3.8 mmol/L (3.6-5.2)
[2023-11-30 05:47] LABS: ANION GAP 11.8 mmol/L (5.0-14.0)
[2023-11-30] MEDS: Insulin Lispro 100 Unit/ML 3 ML KwikPen SUBCUT SCH (08:00)
[2023-11-30] MEDS: Furosemide 20 MG Tab PO SCH (08:52)
[2023-11-30] MEDS: Pantoprazole 40 MG Tab.CR PO SCH (08:52)
[2023-11-30] MEDS: Nicotine 21 MG/24 Hr Patch TRDERM SCH (08:54)
[2023-11-30] MEDS: Folic Acid 1 MG Tab PO SCH (08:54)
[2023-11-30] MEDS: Enoxaparin 40 MG/0.4 ML Syringe SUBCUT SCH (08:57)
[2023-11-30] MEDS: Magnesium Oxide 400 MG Tab PO SCH ×2 (08:57→21:08)
[2023-11-30] MEDS: Thiamine 100 MG Tab PO SCH (08:58)
[2023-11-30] MEDS: Triamcinolone Acetonide 0.1% Crm 15 GM Tube TOP SCH ×2 (08:58→21:08)
[2023-11-30] MEDS: Doxycycline 100 MG Cap PO SCH ×2 (12:00→21:08)
[2023-11-30] MEDS: Cefdinir 300 MG Cap PO SCH ×2 (12:00→21:07)
[2023-12-01] MEDS: Nicotine 21 MG/24 Hr Patch TRDERM SCH (08:41)
[2023-12-01] MEDS: Pantoprazole 40 MG Tab.CR PO SCH (08:41)
[2023-12-01] MEDS: Enoxaparin 40 MG/0.4 ML Syringe SUBCUT SCH (08:41)
[2023-12-01] MEDS: Folic Acid 1 MG Tab PO SCH (08:41)
[2023-12-01] MEDS: Triamcinolone Acetonide 0.1% Crm 15 GM Tube TOP SCH (08:42)
[2023-12-01] MEDS: Magnesium Oxide 400 MG Tab PO SCH (08:42)
[2023-12-01] MEDS: Doxycycline 100 MG Cap PO SCH (08:43)
[2023-12-01] MEDS: Cefdinir 300 MG Cap PO SCH (08:44)
[2023-12-01] MEDS: Thiamine 100 MG Tab PO SCH (08:44)
== END 2023-12-01 12:19 | disposition home or self-care (01) | DRG 896 ==
LOC: JP.ED 21:36 → JP.MS 11-23 02:03 → JP.ICU 11-23 11:30
PROVIDERS: ADMIT Registered Nurse; ATTEND Internal Medicine
PROC: 5A0935A Assistance with Respiratory Ventilation, Less than 24 Consecutive Hours, High Flow/Velocity Cannula (ICD-10-PCS; 2023-11-23)
PROC: 4A133R1 Monitoring of Arterial Saturation, Peripheral, Percutaneous Approach (ICD-10-PCS; 2023-11-23)
PROC: 3E03329 Introduction of Other Anti-infective into Peripheral Vein, Percutaneous Approach (ICD-10-PCS; 2023-11-23)
PROC: 5A1945Z Respiratory Ventilation, 24-96 Consecutive Hours (ICD-10-PCS; principal; 2023-11-24)
PROC: 0BH17EZ Insertion of Endotracheal Airway into Trachea, Via Natural or Artificial Opening (ICD-10-PCS; 2023-11-24)
PROC: 3E033XZ Introduction of Vasopressor into Peripheral Vein, Percutaneous Approach (ICD-10-PCS; 2023-11-24)
PROC: 0D9670Z Drainage of Stomach with Drainage Device, Via Natural or Artificial Opening (ICD-10-PCS; 2023-11-24)
PROC: 0T9B70Z Drainage of Bladder with Drainage Device, Via Natural or Artificial Opening (ICD-10-PCS; 2023-11-24)
PROC: 5A09357 Assistance with Respiratory Ventilation, Less than 24 Consecutive Hours, Continuous Positive Airway Pressure (ICD-10-PCS; 2023-11-27)
PROC: 02HV33Z Insertion of Infusion Device into Superior Vena Cava, Percutaneous Approach (ICD-10-PCS; 2023-11-27)
PROC: 0BC48ZZ Extirpation of Matter from Right Upper Lobe Bronchus, Via Natural or Artificial Opening Endoscopic (ICD-10-PCS; 2023-11-27)
PROC: 0BC88ZZ Extirpation of Matter from Left Upper Lobe Bronchus, Via Natural or Artificial Opening Endoscopic (ICD-10-PCS; 2023-11-27)
DX: F10.231 Alcohol dependence with withdrawal delirium (principal); A41.89 Other specified sepsis; J18.9 Pneumonia, unspecified organism; J96.01 Acute respiratory failure with hypoxia; J96.02 Acute respiratory failure with hypercapnia; R65.21 Severe sepsis with septic shock; E87.1 Hypo-osmolality and hyponatremia; E87.29 Other acidosis; E11.9 Type 2 diabetes mellitus without complications; I10 Essential (primary) hypertension; F17.210 Nicotine dependence, cigarettes, uncomplicated; E78.00 Pure hypercholesterolemia, unspecified; E87.6 Hypokalemia; E83.42 Hypomagnesemia; R19.7 Diarrhea, unspecified; I95.9 Hypotension, unspecified; G47.30 Sleep apnea, unspecified; I48.0 Paroxysmal atrial fibrillation; Z79.82 Long term (current) use of aspirin; Z79.84 Long term (current) use of oral hypoglycemic drugs; Z79.899 Other long term (current) drug therapy; Z11.52 Encounter for screening for COVID-19
CPT/HCPCS: 0241U; 36415; 36600; 51702; 71045; 71045-26; 71275; 71275-26; 74177; 74177-26; 76857; 76857-26; 76870; 76870-26; 80048; 80053; 80202; 80305-QW; 80307; 81001; 82550; 82803; 82947; 83605; 83735; 83880; 84100; 84132; 84145; 84484; 85025; 85027; 85379; 85610; 86140; 87040; 87070; 87205; 87493; 93005; 93010; 93306; 94002; 94003; 94640; 94660; 96365; 96366; 97110-GP; 97162-GP; 97530-GP; 99222; 99233; 99238; 99284; 99285-25; A9270-GY; C1751; C1894; C9113; J0330; J0696; J0744; J1642; J1644; J1650; J1815; J1836; J1940; J2060; J2185; J2270; J2704; J2930; J3370; J3411; J3475; J3480; J3490; J7030; J7040; J7050; J7620; Q0162; Q9967

== ENCOUNTER 2024-05-15 22:26 | Emergency (ER) | payer MEDICAID ==
[2024-05-15 23:30] LABS: BASOPHILS ABSOLUTE AUTO 0.05 K/uL (0.00-0.10); BASOPHILS PERCENT AUTO 0.5 % (0.1-1.3); EOSINOPHILS PERCENT AUTO 3.3 % (0.0-5.4); HEMATOCRIT 37.8 % (38.4-49.7); HEMOGLOBIN 13.5 g/dL (12.9-16.9); IMMATURE GRAN PERCENT AUTO 0.2 % (0.0-0.7); LYMPHOCYTES ABSOLUTE AUTO 3.87 K/uL (0.8-3.3); LYMPHOCYTES PERCENT AUTO 42.2 % (11.4-47.7); MEAN CORPUSCULAR HEMOGLOBIN 32.5 pg (31.6-35.5); MEAN CORPUSCULAR HGB CONC 35.7 g/dL (31.6-35.5); MEAN CORPUSCULAR VOLUME 91.1 fL (81.4-99.0); MONOCYTES ABSOLUTE AUTO 0.49 K/uL (0.20-0.90); MONOCYTES PERCENT AUTO 5.3 % (3.3-12.6); NEUTROPHILS ABSOLUTE AUTO 4.44 K/uL (1.0-7.6); NEUTROPHILS PERCENT AUTO 48.5 % (40.0-78.1); PLATELET COUNT,PLT 228 K/uL (130-375); RED BLOOD CELL COUNT 4.15 M/uL (4.14-5.76); WHITE BLOOD CELL COUNT,WBC 9.2 K/uL (3.2-11.0)
[2024-05-15 23:33] LABS: IMMATURE GRAN ABSOLUTE AUTO 0.02 K/uL (0.00-0.23)
[2024-05-15 23:40] LABS: AMPHETAMINES SCREEN, URINE NEGATIVE (NEGATIVE); BARBITURATE SCREEN,URINE NEGATIVE (NEGATIVE); BENZODIAZEPINES SCREEN,URINE NEGATIVE (NEGATIVE); METHADONE SCREEN, URINE NEGATIVE (NEGATIVE); METHAMPHETAMINES SCREEN, URINE NEGATIVE (NEGATIVE); OXYCODONE SCREEN,URINE NEGATIVE (NEGATIVE); PROPOXYPHENE SCREEN,URINE NEGATIVE (NEGATIVE); THC SCREEN,URINE 50 NG/ML NEGATIVE (NEGATIVE)
[2024-05-15 23:45] LABS: CALCIUM 8.9 mg/dL (8.5-10.1); MAGNESIUM 1.7 mg/dL (1.8-2.4); POTASSIUM,K 3.7 mmol/L (3.6-5.2)
[2024-05-15 23:46] LABS: ANION GAP 17.7 mmol/L (5.0-14.0)
[2024-05-16] MEDS: Magnesium Oxide 400 MG Tab PO ONE (00:01)
== END 2024-05-16 10:11 | disposition home or self-care (01) ==
LOC: JP.ED 22:26
DX: F10.120 Alcohol abuse with intoxication, uncomplicated (principal); I10 Essential (primary) hypertension; E78.00 Pure hypercholesterolemia, unspecified; E11.9 Type 2 diabetes mellitus without complications; F17.210 Nicotine dependence, cigarettes, uncomplicated; Z79.82 Long term (current) use of aspirin; Z79.899 Other long term (current) drug therapy; Z79.84 Long term (current) use of oral hypoglycemic drugs; Y90.9 Presence of alcohol in blood, level not specified
CPT/HCPCS: 36415; 80048; 80305; 80307; 83735; 85025; 99285; A9270

== ENCOUNTER 2025-08-17 07:35 | Day surgery (SDC) | payer MEDICAID ==
[2025-08-17] MEDS: Sodium Chloride 0.9% 10 ML Syringe FLUSH PRN (08:26)
== END 2025-08-17 09:29 | disposition home or self-care (01) ==
LOC: JP.SDS 07:35
PROVIDERS: ATTEND Ophthalmology
DX: E11.36 Type 2 diabetes mellitus with diabetic cataract (principal); H25.11 Age-related nuclear cataract, right eye; E78.00 Pure hypercholesterolemia, unspecified; I10 Essential (primary) hypertension; Z79.82 Long term (current) use of aspirin; Z79.84 Long term (current) use of oral hypoglycemic drugs; Z79.899 Other long term (current) drug therapy
CPT/HCPCS: 66984; V2632; 00142-QZ

== ENCOUNTER 2025-09-21 06:31 | Day surgery (SDC) | payer MEDICAID ==
[2025-09-21] MEDS: Sodium Chloride 0.9% 10 ML Syringe FLUSH PRN (07:02)
== END 2025-09-21 08:00 | disposition home or self-care (01) ==
LOC: JP.SDS 06:31
PROVIDERS: ATTEND Ophthalmology
DX: E11.36 Type 2 diabetes mellitus with diabetic cataract (principal); H25.12 Age-related nuclear cataract, left eye; E78.00 Pure hypercholesterolemia, unspecified; I10 Essential (primary) hypertension; F17.200 Nicotine dependence, unspecified, uncomplicated; Z79.82 Long term (current) use of aspirin; Z79.84 Long term (current) use of oral hypoglycemic drugs; Z79.899 Other long term (current) drug therapy
CPT/HCPCS: V2632